=== PATIENT | male | born 1965 | race Caucasian/White ===

== ENCOUNTER 2017-01-19 13:06 | Inpatient (IN) | payer BC ==
[~2017-01-19] VITALS: Ht 175.3 cm; Wt 81.6 kg
[2017-01-19 15:33] VITALS: BP 138/76
[2017-01-19 16:10] VITALS: BP 138/76
[2017-01-19 19:26] VITALS: BP 139/67
[2017-01-19 23:14] VITALS: BP 141/68
[2017-01-20 03:23] VITALS: BP 132/72
[2017-01-20 07:01] LABS: HEMATOCRIT 43.2 % (38.0-50.0); MCH 31.4 PG (29.0-34.0); MCV 89.8 FL (86-99); MEAN PLAT.VOLUME 10.5 uM^3 (9.0-12.4); PLATELET COUNT 215 K/uL (156-360); RBC DIS.WIDTH-CV 12.6 % (11.8-14.6); RBC DIS.WIDTH-SD 41.5 % (39-53); RED BLOOD COUNT 4.81 M/uL (4.00-5.50); WHITE BLOOD COUNT 15.4 K/uL (4.1-10.2)
[2017-01-20 07:34] LABS: ANION GAP 11 MEQ/L (2-14); CHLORIDE 105 MEQ/L (99-109); GFR ESTIMATE (CALCULATED) > 59 mL/min/; GLUCOSE 124 mg/dL (70-99); POTASSIUM 4.2 MEQ/L (3.7-5.4); SAMPLE HEMOLYSIS CHECK 0; SAMPLE ICTERIC CHECK 0; SAMPLE LIPEMIA CHECK 0; SODIUM 141 MEQ/L (136-147); UREA NITROGEN (BUN) 18 mg/dL (9-23)
[2017-01-20 07:49] VITALS: BP 122/71
[2017-01-20] MEDS ORDERED: TYLENOL REGULA325 MG PO (09:05)
[2017-01-20] MEDS ORDERED: morphine Sulfate IV (09:05)
[2017-01-20] MEDS ORDERED: TRAMADOL HCL50 MG PO (09:05)
[2017-01-20] MEDS ORDERED: DOCUSATE SODIU100 MG PO (09:06)
[2017-01-20] MEDS ORDERED: DECADRON4 MG/ML 1M IV (09:06)
[2017-01-20] MEDS ORDERED: ALPRAZOLAM0.5 MG PO (09:06)
[2017-01-20] MEDS ORDERED: LEVETIRACETAM500 MG PO (09:06)
[2017-01-20 11:02] VITALS: BP 114/66
== END 2017-01-20 14:15 | disposition short-term general hospital (02) | DRG 54 ==
LOC: 3EAST 13:06 → ENRESERV 13:09 → 3EAST 14:55
PROVIDERS: Internal Medicine
DX: D49.6 Neoplasm of unspecified behavior of brain (principal); G93.5 Compression of brain; G93.6 Cerebral edema; I10 Essential (primary) hypertension; Z85.828 Personal history of other malignant neoplasm of skin; Z88.2 Allergy status to sulfonamides
CPT/HCPCS: 80048; 85027; J1100; J2270; J2405